=== PATIENT | female | born 1950 | race Two or more races ===

== ENCOUNTER 2024-02-22 11:31 | Inpatient (IN) | payer OTHER ==
[~2024-02-22] VITALS: Ht 149.9 cm; Wt 54.9 kg
[2024-02-22] MEDS ORDERED: IV NS 0.9% 250 ML IV ONE (11:50)
[2024-02-22] MEDS ORDERED: CT SWABBABLE VALVE TRANS SET 1 EA INFUS.SET MC ONE (11:50)
[2024-02-22] MEDS ORDERED: IOHEXOL-350 100 ML VIAL IV ONE (11:50)
[2024-02-22 11:55] LABS: BASOPHILS % (AUTO) 0.8 % (0.0-2.0); EOSINOPHILS % (AUTO) 0.9 % (0.0-6.0); HEMATOCRIT 41 % (33-45); HEMOGLOBIN 13.5 g/dL (11.5-14.8); LYMPHOCYTES # (AUTO) 1.9 K/uL (0.8-4.8); LYMPHOCYTES % (AUTO) 34.6 % (20.0-44.0); MEAN CORPUSCULAR HEMOGLOBIN 28 PG (26.0-33.0); MEAN CORPUSCULAR HGB CONC 33 g/dl (31.0-36.0); MEAN CORPUSCULAR VOLUME 84 fL (82-100); MONOCYTES # (AUTO) 0.4 K/uL (0.1-1.30); MONOCYTES % (AUTO) 8.3 % (2.0-12.0); NEUTROPHILS % (AUTO) 55.4 % (43.0-81.0); PLATELET COUNT (AUTO) 221 K/uL (150-450); RED BLOOD CELL COUNT(AUTO) 4.87 MIL/uL (4.0-5.2); RED CELL DISTRIBUTION WIDTH 14.2 % (11.5-15.0); WHITE BLOOD COUNT (AUTO) 5.4 K/uL (4.3-11.0)
[2024-02-22 12:06] LABS: CALCIUM, SERUM 8.8 mg/dL (8.5-10.1); CARBON DIOXIDE 27 mmol/L (21-32); CHLORIDE 101 mmol/L (98-107); CREATININE 0.7 mg/dL (0.6-1.3); GLUCOSE 120 mg/dL (74-106); POTASSIUM 3.7 mmol/L (3.5-5.1); SODIUM SERUM 134 mmol/L (136-145); UREA NITROGEN, BLOOD 20 mg/dL (7-18)
[2024-02-22 12:09] LABS: INR 0.96 (0.91-1.10); PARTIAL THROMBOPLASTIN TIME 23.9 SEC (24.3-34.3); PROTHROMBIN TIME 9.9 SECS (9.2-11.1)
[2024-02-22 12:19] LABS: ALANINE AMINOTRANSFERASE 33 U/L (12-78); ALBUMIN 3.5 g/dL (3.4-5.0); ALKALINE PHOSPHATASE 59 U/L (46-116); ASPARTATE AMINOTRANSFERASE 20 U/L (15-37); BILIRUBIN,DIRECT 0.1 mg/dL (0.0-0.2); BILIRUBIN,TOTAL 0.6 mg/dL (0.2-1.0); TOTAL PROTEIN, SERUM 7.7 g/dL (6.4-8.2)
[2024-02-22] MEDS ORDERED: METOPROLOL TARTRATE INJ 5 MG/5 ML AMPUL ONE (12:44)
[2024-02-22] MEDS ORDERED: METOPROLOL TARTRATE 25 MG TABLET ONE (12:45)
[2024-02-22] MEDS: METOPROLOL TARTRATE 25 MG TABLET PO ONE (12:54)
[2024-02-22] MEDS ORDERED: MULT-1201 PO (12:54)
[2024-02-22] MEDS: METOPROLOL TARTRATE INJ 5 MG/5 ML AMPUL IV ONE (12:55)
[2024-02-22] MEDS: ASPIRIN 325 MG TABLET PO SCH (15:20)
[2024-02-22] MEDS ORDERED: ASPIRIN 325 MG TABLET ONE (15:21)
[2024-02-22] MEDS ORDERED: ATORVASTATIN 40 MG TABLET PO SCH (15:30)
[2024-02-22] MEDS ORDERED: ONDANSETRON HCL/PF 4 MG/2 ML VIAL IVP PRN (16:30)
[2024-02-22] MEDS ORDERED: ACETAMINOPHEN 325 MG TABLET PO PRN (16:30)
[2024-02-22] MEDS ORDERED: Z GUARD REMEDY 4 OZ OINT TP PRN (17:00)
[2024-02-22 20:00] VITALS: BP 130/50; TEMP 98.1; O2SAT 96
[2024-02-22] MEDS: METOPROLOL TARTRATE 25 MG TABLET PO SCH (21:44)
[2024-02-22] MEDS: ATORVASTATIN 40 MG TABLET PO SCH (21:44)
[2024-02-23] VITALS: BP 103/49; TEMP 97.9; O2SAT 96
[2024-02-23 04:00] VITALS: BP 138/68; TEMP 97.7; O2SAT 96
[2024-02-23 07:13] LABS: BASOPHILS % (AUTO) 0.8 % (0.0-2.0); EOSINOPHILS # (AUTO) 0.1 K/uL (0.0-0.7); HEMATOCRIT 39 % (33-45); HEMOGLOBIN 12.8 g/dL (11.5-14.8); LYMPHOCYTES # (AUTO) 2.1 K/uL (0.8-4.8); LYMPHOCYTES % (AUTO) 39.6 % (20.0-44.0); MEAN CORPUSCULAR HEMOGLOBIN 28 PG (26.0-33.0); MEAN CORPUSCULAR HGB CONC 33 g/dl (31.0-36.0); MEAN CORPUSCULAR VOLUME 85 fL (82-100); MONOCYTES # (AUTO) 0.5 K/uL (0.1-1.30); MONOCYTES % (AUTO) 10.2 % (2.0-12.0); NEUTROPHILS # (AUTO) 2.5 K/uL (1.8-8.9); NEUTROPHILS % (AUTO) 48.4 % (43.0-81.0); PLATELET COUNT (AUTO) 217 K/uL (150-450); RED BLOOD CELL COUNT(AUTO) 4.59 MIL/uL (4.0-5.2); RED CELL DISTRIBUTION WIDTH 13.7 % (11.5-15.0); WHITE BLOOD COUNT (AUTO) 5.2 K/uL (4.3-11.0)
[2024-02-23 07:21] LABS: ERYTHROCYTE SEDIMENTATION RATE 17 MM/HR (0-30)
[2024-02-23 07:30] LABS: ALANINE AMINOTRANSFERASE 28 U/L (12-78); ALBUMIN 2.8 g/dL (3.4-5.0); ALKALINE PHOSPHATASE 54 U/L (46-116); ASPARTATE AMINOTRANSFERASE 20 U/L (15-37); BILIRUBIN,TOTAL 0.8 mg/dL (0.2-1.0); CALCIUM, SERUM 8.3 mg/dL (8.5-10.1); CARBON DIOXIDE 24 mmol/L (21-32); CHLORIDE 106 mmol/L (98-107); CREATININE 0.5 mg/dL (0.6-1.3); GLUCOSE 104 mg/dL (74-106); MAGNESIUM 2.4 mg/dL (1.8-2.4); PHOSPHORUS 4.1 mg/dL (2.5-4.9); POTASSIUM 3.7 mmol/L (3.5-5.1); SODIUM SERUM 140 mmol/L (136-145); TOTAL PROTEIN, SERUM 6.9 g/dL (6.4-8.2); UREA NITROGEN, BLOOD 17 mg/dL (7-18)
[2024-02-23] MEDS: PANTOPRAZOLE 40 MG TABLET.DR PO SCH (07:38)
[2024-02-23 08:00] VITALS: BP 137/55; TEMP 98; O2SAT 96
[2024-02-23 08:29] LABS: CHOLESTEROL 236 mg/dL (<200); HDL CHOLESTEROL 50 mg/dL (40-60); LDL 155 mg/dL (0-99); TRIGLYCERIDES 114 mg/dL (30-150)
[2024-02-23 12:00] VITALS: BP 123/56; TEMP 97.4; O2SAT 96
[2024-02-23 16:00] VITALS: BP 143/59; TEMP 98.4; O2SAT 98
[2024-02-23 20:00] VITALS: BP 110/52; TEMP 98.1; O2SAT 92
[2024-02-24] VITALS: BP 126/49; TEMP 98; O2SAT 95
[2024-02-24 04:48] VITALS: BP 143/54; TEMP 97.8; O2SAT 95
[2024-02-24 08:10] VITALS: BP 144/56; TEMP 98.6; O2SAT 95
[2024-02-24] MEDS ORDERED: ASPI-1420 PO (14:38)
[2024-02-24] MEDS ORDERED: ATOR40TA PO (14:38)
[2024-02-24] MEDS ORDERED: METO25TA20 PO (14:38)
[2024-02-24 17:06] LABS: APPEARANCE,URINE CLEAR (CLEAR); BILIRUBIN,URINE NEGATIVE (NEGATIVE); BLOOD, URINE 1+ Ery/uL (NEGATIVE); COLOR,URINE YELLOW (YELLOW); KETONES,URINE NEGATIVE (NEGATIVE); LEUKOCYTE ESTERASE ,URINE NEGATIVE (NEGATIVE); NITRITE, URINE NEGATIVE (NEGATIVE); PH,URINE 6.5 (5.0-8.0); PROTEIN,URINE NEGATIVE (NEGATIVE); UGLUCOSE NEGATIVE (NEGATIVE); UROBILINOGEN,URINE 0.2 EU/dL (0.2)
[2024-02-24 17:30] VITALS: BP 150/61; TEMP 98.2; O2SAT 95
[2024-02-24 18:08] LABS: ADD URINE CULTURE NO; BACTERIA,URINE None seen /HPF (None Seen); SQUAMOUS EPITHELIAL CELL,UR 0-2 /HPF (None Seen); WBC,URINE 0-2 /HPF (0-3)
[2024-02-25 15:07] LABS: CHROMOGRANIN A 104.8 ng/mL (0.0-101.8)
[2024-02-28 02:11] LABS: RENIN, PLASMA 0.269 ng/mL/hr (.)
== END 2024-02-24 18:00 | disposition home or self-care (01) | DRG 47 ==
LOC: ER 11:41 → TELE 14:49 → MED 02-24 10:15
PROVIDERS: ADMIT Nurse Practitioner Acute Care; ATTEND Nurse Practitioner Acute Care
DX: G45.9 Transient cerebral ischemic attack, unspecified (principal); I11.9 Hypertensive heart disease without heart failure; E87.1 Hypo-osmolality and hyponatremia; I10 Essential (primary) hypertension; I67.848 Other cerebrovascular vasospasm and vasoconstriction; H54.7 Unspecified visual loss; R29.700 NIHSS score 0; Z79.899 Other long term (current) drug therapy
CPT/HCPCS: 36415; 70450-TC; 70496-TC; 70498-TC; 80048-TC; 80053-TC; 80061-TC; 80076-TC; 81001; 82088; 82962-TC; 83735-TC; 84100-TC; 84244; 84443-TC; 84484-TC; 85025-TC; 85652-TC; 85730-TC; 86316; 86850-TC; 92526; 92611-TC; 93307-TC; 97112-TC; 97116-TC; 97530-TC; G0378; J3490; J7050; Q9967